=== PATIENT | male | born 2005 | race African-American/Black ===

== ENCOUNTER 2024-09-07 03:00 | Emergency (ER) | payer MEDICAID ==
[~2024-09-07] VITALS: Ht 182.9 cm; Wt 82.0 kg
[2024-09-07 03:01] VITALS: TEMP 37.1; O2SAT 96
[2024-09-07 03:47] LABS: HEMATOCRIT. 40.9 % (42.0-52.0); MEAN CORPUSCULAR HEMOGLOBIN 28.8 pg (28.0-32.0); MEAN CORPUSCULAR HGB CONC 34.2 g/dL (31.0-37.0); MEAN PLATELET VOLUME 6.9 fl (7.4-10.4); PLATELET 401 x1000/uL (130-400); RED BLOOD CELL COUNT 4.87 mill/uL (4.7-6.1); RED CELL DISTRIBUTION WIDTH 12.8 % (11.6-14.6); WHITE BLOOD COUNT 16.7 x1000/uL (4.5-11.0)
[2024-09-07 04:01] LABS: AMMONIA < 17 uMol/L (<32)
[2024-09-07 04:04] LABS: DIFFERENTIAL COMMENT 1
[2024-09-07] MEDS: SODIUM CHLORIDE 0.9% 1,000 ML IV ONE (04:05)
[2024-09-07 04:20] LABS: CHLORIDE 105 mEq/L (98-107); POTASSIUM 4.3 mEq/L (3.5-5.1); SODIUM 140 mEq/L (136-145)
[2024-09-07 04:21] LABS: CALCIUM 9.8 mg/dL (8.7-10.4); CARBON DIOXIDE 23 mEq/L (21-32)
[2024-09-07 04:26] LABS: GLUCOSE 127 mg/dL (70-105); UREA NITROGEN BLOOD 12 mg/dL (9-23)
[2024-09-07 04:28] LABS: ACETAMINOPHEN 3 ug/mL (10-30)
[2024-09-07 04:33] LABS: CLARITY URINE CLEAR (CLEAR); COLOR URINE YELLOW (YELLOW); GLUCOSE URINE NEGATIVE (NEGATIVE); KETONES URINE NEGATIVE (NEGATIVE); LEUKOCYTE ESTERASE URINE NEGATIVE (NEGATIVE); NITRITE URINE NEGATIVE (NEGATIVE); OCCULT BLOOD URINE NEGATIVE (NEGATIVE); PROTEIN URINE NEGATIVE (NEGATIVE); SPECIFIC GRAVITY URINE 1.013 (1.005-1.030); UROBILINOGEN URINE 0.2 E.U./dL (0.2-1.0)
[2024-09-07 04:35] LABS: *AMPHETAMINES SCREEN URINE NEGATIVE (NEGATIVE); *BARBITURATES SCREEN URINE NEGATIVE (NEGATIVE); *BENZODIAZEPINES SCREEN URINE PRESUMPTIVE POSITIVE (NEGATIVE); *COCAINE SCREEN URINE NEGATIVE (NEGATIVE); METHADONE URINE SCREEN NEGATIVE (NEGATIVE)
[2024-09-07 04:36] LABS: CANNABINOID URINE SCREEN PRESUMPTIVE POSITIVE (NEGATIVE); ECSTASY MDMA SCREEN URINE NEGATIVE (NEGATIVE); OPIATES URINE SCREEN NEGATIVE (NEGATIVE); PHENCYCLIDINE URINE SCREEN NEGATIVE (NEGATIVE)
[2024-09-07 04:37] LABS: ETHANOL BLOOD < 10 mg/dL (<10)
[2024-09-07 04:49] LABS: PLATELET ESTIMATE NORMAL
[2024-09-07 06:17] VITALS: BP 124/58; PULSE 105; RESP 14; O2SAT 99
== END 2024-09-07 06:25 | disposition home or self-care (01) ==
LOC: ER 03:00
DX: G92.9 Unspecified toxic encephalopathy (principal); R45.1 Restlessness and agitation; F12.90 Cannabis use, unspecified, uncomplicated; Z79.899 Other long term (current) drug therapy
CPT/HCPCS: 80305; 80048; 81003; 80307; 80329; 80320; 82140; 85025; 36415; 71045; 96360; 99284; J7030; Z7610; G0480